=== PATIENT | male | born 1935 | race Caucasian/White ===

== ENCOUNTER 2020-05-21 13:19 | Inpatient (IN) ==
[2020-05-21] MEDS ORDERED: NS 500 ML IV 1,000 ML IV ONE (13:46)
[2020-05-21] MEDS ORDERED: ZOFRAN INJ 4 MG VIAL IVP ONE (13:46)
--- NOTE | 2020-05-21 13:46 | DR.DIZZY ---
HPI Time seen Time Seen by Provider: 05/21/20 13:38 PCP Primary Care Physician: el bertrand Complaint Chief Complaint Doctor Comments: cOMPLAINT OF WEAKNESS, DECREASED APPETITE AND DIARRHEA SINCE COVID DIAGNOSIS. Chief Complaint:: covid positive on the 2nd of this month. progressive weakness. decreased po intake fluids and food. diarrhea on and off since diagnosis COVID-19 Coronavirus risk:travel/contact w/high risk person: No Has patient experienced Coronavirus symptoms: Yes Coronavirus symptoms experienced: Fever, Coughing and Shortness of Breath Nurses Notes Reviewed Nurses Notes Review: Yes Source History Provided: Patient and Family Member Mode of Arrival Mode of Arrival: Ambulatory Timing Onset of Chief Complaint: 05/09/20 Came on: Gradually Symptom Onset: Unknown Duration Duration: Constant How lon Duration: Days Location of Weakness Weakness Location: Generalized Context Onset: With light exertion History of: None Stroke Symptoms: None Severity Severity: Abnormal activity level Modifying factors Worsens: Other (EXERTION) Associated signs and symptoms Associated Signs and Symptoms: Weak PMH PMH Past Medical History: Yes Past Medical History: Hypertension Past Medical History Comment: covid, brain aneurysms x2 Past Surgical History: Yes Surgical History: Other Past Surgical History Comment: brain surgery for aneurysm, hernia Family History History of Family Medical Conditions: Yes Family Medical History: Cancer and Hypertension Social History Alcohol Use: None Do you use any recreational Drugs:: No Lives With: Alone Lives Where: Home Travel Risk Coronavirus risk:travel/contact w/high risk person: No Has patient experienced Coronavirus symptoms: Yes Coronavirus symptoms experienced: Fever, Coughing and Shortness of Breath Infectious screening In the last 2 months have you had wt loss of >10#?: NO Have you had fever, night sweats or hemotysis?: No Have you traveled outside the country in the last 6 months?: No Isolation: Droplet ROS Review of Systems Constitutional: Weakness Eyes: No Symptoms Reported ENTM: No Symptoms Reported Respiratoy: No Symptoms Reported Gastrointestinal/Abdominal: Diarrhea Genitourinary: No Symptoms Reported Neurological: Dizziness Musculoskeletal: No Symptoms Reported Integumentary: No Symptoms Reported Hematologic/Lymphatic: No Symptoms Reported Endocrine: No Symptoms Reported Psychiatric: No Symptoms Reported All Other Systems: Reviewed and Negative PE Vital Signs Vitals: Temperature 97.9 F Pulse Rate 55 Respiratory Rate 18 Blood Pressure 107/56 O2 Sat by Pulse Oximetry 88 General Limitations: No Limitations General Appearance: Alert and In No Apparent Distress Head Head Exam: Normal Inspection, Atraumatic and Normocephalic Eyes Eye exam: Normal Appearance and EOMI Pupils: Regular, Round: Bilateral ENT ENT Exam: Normal Exam and Mucous Membranes Dry Neck Neck Exam: Normal Inspection, Full ROM and Trachea Midline Chest Chest Inspection: Normal Inspection Respiratory Respiratory Exam: Left: Rales, Right: Clear to Auscultation and Lower: Rales Cardiovascular Cardiovascular Exam: Regular Rate Abdominal Exam Abdominal Exam: Normal Inspection, Normal Bowel Sounds and Soft; negative Distention, Tenderness and Guarding Rectal Rectal Exam: Deferred Extremeties Extremities Exam: Normal Inspection and Full ROM Back Back Exam: Normal Inspection and Full ROM Neurologic Neurological Exam: Alert, Oriented X3, CN II-XII Intact and Normal Gait Patient Oriented To: Person, Place and Time Speech: Fluid Speech Psychiatric Psychiatric Exam: Normal Affect Skin Skin Exam: Normal Color COURSE Consultation Called: 14:48 Call Returned: 14:48 Consultation Comments: 1445:case discussed with DR. Recinos admit for covid 19 protocol ROR Labs Reviewed Result Diagrams: 05/21/20 14:03 05/21/20 14:03 Laboratory: WBC 7.5 X10^3/uL (3.6-10.0) 05/21/20 14:03 RBC 4.74 X10^6/uL (4.7-6.0) 05/21/20 14:03 Hgb 13.6 g/dL (13.5-18.0) 05/21/20 14:03 Hct 41.3 % (42.0-54.0) L 05/21/20 14:03 MCV 87.2 fL (80.0-100.0) 05/21/20 14:03 MCH 28.7 pg (27.0-34.0) 05/21/20 14:03 MCHC 33.0 g/dL (33.0-35.0) 05/21/20 14:03 RDW 14.2 % (11.6-16.5) 05/21/20 14:03 Plt Count 288 X10^3/uL (150.0-450.0) 05/21/20 14:03 Plt Count Comment Adequate (ADEQUATE) 05/21/20 14:03 MPV 8.5 fL (7.4-11.0) 05/21/20 14:03 Neut % (Auto) 92.4 % (42.0-75.0) H 05/21/20 14:03 Lymph % (Auto) 3.6 % (21.0-51.0) L 05/21/20 14:03 Redwood % (Auto) 3.5 % (0.0-13.0) 05/21/20 14:03 Eos % (Auto) 0.1 % (0.9-2.9) L 05/21/20 14:03 Baso % (Auto) 0.4 % (0.2-1.0) 05/21/20 14:03 Neut # (Auto) 7.0 x10^3/uL (2.2-4.8) H 05/21/20 14:03 Lymph # (Auto) 0.3 X10^3/uL (1.3-2.9) L 05/21/20 14:03 Redwood # (Auto) 0.3 x10^3/uL (0.3-0.8) 05/21/20 14:03 Eos # (Auto) 0.0 x10^3/uL (0.0-0.2) 05/21/20 14:03 Baso # (Auto) 0.0 X10^3/uL (0.0-0.1) 05/21/20 14:03 Absolute Nucleated RBC 0.1 /100WBC 05/21/20 14:03 Total Counted 100 05/21/20 14:03 Neutrophils % (Manual) 91 % (39-76) H 05/21/20 14:03 Band Neutrophils % 3 % (0-10) 05/21/20 14:03 Lymphocytes % (Manual) 4 % (13-43) L 05/21/20 14:03 Monocytes % (Manual) 2 % (4-9) L 05/21/20 14:03 Plt Morphology Comment Normal (NORMAL) 05/21/20 14:03 RBC Morphology Normal (NORMAL) 05/21/20 14:03 Sample Site Lr 05/21/20 14:05 ABG pH 7.480 (7.35-7.45) H 05/21/20 14:05 ABG pCO2 28.0 mmHg (35.0-45.0) L 05/21/20 14:05 ABG pO2 70.0 mmHg (80.0-100.0) L 05/21/20 14:05 ABG HCO3 20.9 mmol/L (22-26) L 05/21/20 14:05 ABG O2 Saturation 95.0 % (90-100) 05/21/20 14:05 ABG Base Excess -1.5 mmol/L (-2.0-2.0) 05/21/20 14:05 Uriah Test Pos 05/21/20 14:05 A-a Gradient 45.0 mmHg 05/21/20 14:05 FiO2 28.0 05/21/20 14:05 Blood Gas Comments Yennifer well cb 05/21/20 14:05 Sodium 135 mmol/L (136-145) L 05/21/20 14:03 Corrected Sodium TNP 05/21/20 14:03 Potassium 3.8 mmol/L (3.5-5.1) 05/21/20 14:03 Chloride 100 mmol/L (98-107) 05/21/20 14:03 Carbon Dioxide 22.7 mmol/L (21-32) 05/21/20 14:03 BUN 33 mg/dL (7-18) H 05/21/20 14:03 Creatinine 1.33 mg/dL (0.70-1.30) H 05/21/20 14:03 Est GFR (MDRD) Af Amer > 60 (>60) 05/21/20 14:03 Est GFR (MDRD) Non-Af 54 (>60) L 05/21/20 14:03 Glucose 107 mg/dL (65-99) H 05/21/20 14:03 Calcium 8.7 mg/dL (8.5-10.1) 05/21/20 14:03 Corrected Calcium 9.8 mg/dL (8.5-10.1) 05/21/20 14:03 Total Bilirubin 0.70 mg/dL (0.2-1.0) 05/21/20 14:03 AST 40 Units/L (15-37) H 05/21/20 14:03 ALT 36 Units/L (12-78) 05/21/20 14:03 Alkaline Phosphatase 72 Units/L (46-116) 05/21/20 14:03 Creatine Kinase 62 Units/L (39-308) 05/21/20 14:03 CK-MB (CK-2) < 1.0 ng/mL (0-4.0) 05/21/20 14:03 CK/CKMB % Calc 1.6 % (<4) 05/21/20 14:03 Troponin I < 0.02 ng/mL (0-1.5) 05/21/20 14:03 Total Protein 7.1 g/dL (6.4-8.2) 05/21/20 14:03 Albumin 2.6 g/dL (3.4-5.0) L 05/21/20 14:03 Globulin 4.5 g/dL (2.5-4.5) 05/21/20 14:03 Albumin/Globulin Ratio 0.6 Ratio (1.1-2.1) L 05/21/20 14:03 XRAY XRAY Interpreted by: Self X-ray Results: chest: bilateral patchy basilar infiltrates Opioid Opioid Risk Tool Age (Everardo box if 16-45): No History of Preadolescent Sexual Abuse: No Total: 0 Total Score Risk Category: Low Risk Copyright: Juan Daniel DINH predicting aberrant behaviors
[2020-05-21] MEDS ORDERED: ZOFRAN INJ 4 MG VIAL ONE (13:54)
[2020-05-21] MEDS ORDERED: NS 500 ML IV 500 ML IV ONE (13:55)
[2020-05-21 14:09] LABS: ABG ALLEN TEST POS; ABG BASE EXCESS -1.5 mmol/L (-2.0-2.0); ABG HCO3 20.9 mmol/L (22-26)
[2020-05-21 14:20] LABS: BASOPHILS % (AUTO) 0.4 % (0.2-1.0); EOSINOPHILS % (AUTO) 0.1 % (0.9-2.9); HEMATOCRIT 41.3 % (42.0-54.0); HEMOGLOBIN 13.6 g/dL (13.5-18.0); LYMPHOCYTES # (AUTO) 0.3 X10^3/uL (1.3-2.9); LYMPHOCYTES % (AUTO) 3.6 % (21.0-51.0); MEAN CORPUSCULAR HEMOGLOBIN 28.7 pg (27.0-34.0); MEAN CORPUSCULAR VOLUME 87.2 fL (80.0-100.0); MEAN PLATELET VOLUME 8.5 fL (7.4-11.0); MONOCYTES # (AUTO) 0.3 x10^3/uL (0.3-0.8); MONOCYTES % (AUTO) 3.5 % (0.0-13.0); NEUTROPHILS % (AUTO) 92.4 % (42.0-75.0); PLATELET COUNT 288 X10^3/uL (150.0-450.0); RED BLOOD COUNT 4.74 X10^6/uL (4.7-6.0); RED CELL DISTRIBUTION WIDTH 14.2 % (11.6-16.5); WHITE BLOOD COUNT 7.5 X10^3/uL (3.6-10.0)
[2020-05-21 14:39] LABS: BLOOD UREA NITROGEN 33 mg/dL (7-18); CALCIUM 8.7 mg/dL (8.5-10.1); CARBON DIOXIDE 22.7 mmol/L (21-32); CHLORIDE 100 mmol/L (98-107); CREATININE 1.33 mg/dL (0.70-1.30); SODIUM 135 mmol/L (136-145); TROPONIN I < 0.02 ng/mL (0-1.5); eGFR NON BLACK RACES 54 (>60)
--- NOTE | 2020-05-21 14:42 | RAD ---
HISTORYCOVIDSTUDYCHEST, 1 VIEWCOMPARISONNone availableFINDINGSThe trachea is midline. The cardiac silhouette is unremarkable . The lungs demonstrate scattered peripheral airspace opacities throughout both lungs left greater than right compatible with multifocal pneumonia and history of COVID-19 the bony thorax is unremarkable.IMPRESSIONMultifocal pneumonia..Electronically signed by: ABHISHEK LINARES (May 21, 2020 14:40:20)
[2020-05-21 14:43] LABS: ALANINE AMINOTRANSFERASE 36 Units/L (12-78); ALBUMIN 2.6 g/dL (3.4-5.0); ALKALINE PHOSPHATASE 72 Units/L (46-116); ASPARTATE AMINO TRANSFERASE 40 Units/L (15-37); CKMB % 1.6 % (<4); COR CA(FOR HYPOALB) 9.8 mg/dL (8.5-10.1); CREATINE KINASE 62 Units/L (39-308); CREATINE KINASE MB < 1.0 ng/mL (0-4.0); TOTAL PROTEIN 7.1 g/dL (6.4-8.2)
[2020-05-21 14:50] LABS: BAND NEUTROPHILS % 3 % (0-10)
[2020-05-21 14:51] LABS: PLATELET MORPHOLOGY COMMENT NORMAL (NORMAL)
[2020-05-21] MEDS ORDERED: PLAQUENIL PO SCH (15:00)
[2020-05-21] MEDS ORDERED: REMDESIVIR 200 MG in NS 250 ML IV 250 ML IV SCH (15:00)
[2020-05-21] MEDS: DUONEB 0.5 MG/3 MG (3 mL) NEB SCH ×2 (17:15→21:40)
[2020-05-21 17:23] VITALS: BMI 21.7
[2020-05-21] MEDS: NS 1000 ML 1,000 ML IV SCH (18:23)
[2020-05-21] MEDS: ZINC SULFATE PO SCH ×2 (18:23→22:28)
[2020-05-21] MEDS: VITAMIN D (1.25MG) PO SCH (18:23)
[2020-05-21] MEDS: ASCORBIC ACID INJ MULTI-DOSE VIAL 1,500 MG in NS 100 ML IV 100 ML IV SCH ×2 (18:23→21:37)
[2020-05-21] MEDS: DECADRON TAB PO SCH (18:23)
[2020-05-21] MEDS: VITAMIN A PO SCH (18:24)
[2020-05-21] MEDS: TRICOR TAB 160 MG PO SCH (18:24)
[2020-05-21] MEDS: LOVENOX INJ 30 MG SYR SC SCH ×2 (19:19→22:28)
[2020-05-21] MEDS: PULMICORT NEB TX 0.5 MG NEB SCH (21:40)
[2020-05-22] MEDS: ASCORBIC ACID INJ MULTI-DOSE VIAL 1,500 MG in NS 100 ML IV 100 ML IV SCH ×4 (04:05→22:19)
[2020-05-22 05:02] LABS: ABG ALLEN TEST POS; ABG BASE EXCESS -0.2 mmol/L (-2.0-2.0)
[2020-05-22 05:36] LABS: BASOPHILS % (AUTO) 0.2 % (0.2-1.0); HEMATOCRIT 35.6 % (42.0-54.0); LYMPHOCYTES # (AUTO) 0.2 X10^3/uL (1.3-2.9); LYMPHOCYTES % (AUTO) 5.7 % (21.0-51.0); MEAN CORPUSCULAR HEMOGLOBIN 29.2 pg (27.0-34.0); MEAN CORPUSCULAR HGB CONC 33.7 g/dL (33.0-35.0); MEAN CORPUSCULAR VOLUME 86.7 fL (80.0-100.0); MEAN PLATELET VOLUME 8.1 fL (7.4-11.0); MONOCYTES # (AUTO) 0.1 x10^3/uL (0.3-0.8); MONOCYTES % (AUTO) 2.1 % (0.0-13.0); PLATELET COUNT 253 X10^3/uL (150.0-450.0); RED BLOOD COUNT 4.11 X10^6/uL (4.7-6.0); RED CELL DISTRIBUTION WIDTH 14.3 % (11.6-16.5); WHITE BLOOD COUNT 3.2 X10^3/uL (3.6-10.0)
[2020-05-22 06:02] LABS: ALANINE AMINOTRANSFERASE 29 Units/L (12-78); ALBUMIN 2.2 g/dL (3.4-5.0); ALKALINE PHOSPHATASE 58 Units/L (46-116); ASPARTATE AMINO TRANSFERASE 29 Units/L (15-37); BLOOD UREA NITROGEN 34 mg/dL (7-18); CALCIUM 8.5 mg/dL (8.5-10.1); CHLORIDE 105 mmol/L (98-107); COR CA(FOR HYPOALB) 9.9 mg/dL (8.5-10.1); COR NA(FOR HYPERGLY) 142 mmol/L (136-145); CREATININE 1.25 mg/dL (0.70-1.30); SODIUM 141 mmol/L (136-145); TOTAL PROTEIN 6.1 g/dL (6.4-8.2); eGFR NON BLACK RACES 58 (>60)
[2020-05-22 06:55] LABS: PLATELET MORPHOLOGY COMMENT NORMAL (NORMAL)
[2020-05-22] MEDS: DUONEB 0.5 MG/3 MG (3 mL) NEB SCH ×4 (09:15→20:00)
[2020-05-22] MEDS: PULMICORT NEB TX 0.5 MG NEB SCH ×2 (09:15→20:00)
[2020-05-22] MEDS: DECADRON TAB PO SCH (10:25)
[2020-05-22] MEDS: REMDESIVIR 100 MG in NS 250 ML IV 250 ML IV SCH (10:26)
[2020-05-22] MEDS: LOVENOX INJ 30 MG SYR SC SCH ×2 (10:26→22:19)
[2020-05-22] MEDS: VITAMIN A PO SCH (10:26)
[2020-05-22] MEDS: VITAMIN D (1.25MG) PO SCH (10:26)
[2020-05-22] MEDS: TRICOR TAB 160 MG PO SCH (10:26)
[2020-05-22] MEDS: ZINC SULFATE PO SCH ×2 (10:27→22:19)
[2020-05-22] MEDS: NS 1000 ML 1,000 ML IV SCH (15:53)
[2020-05-23] MEDS: ASCORBIC ACID INJ MULTI-DOSE VIAL 1,500 MG in NS 100 ML IV 100 ML IV SCH ×4 (04:45→22:45)
[2020-05-23 06:16] LABS: BASOPHILS % (AUTO) 0 % (0.2-1.0); HEMATOCRIT 33.2 % (42.0-54.0); HEMOGLOBIN 11.1 g/dL (13.5-18.0); LYMPHOCYTES # (AUTO) 0.3 X10^3/uL (1.3-2.9); LYMPHOCYTES % (AUTO) 4.7 % (21.0-51.0); MEAN CORPUSCULAR HEMOGLOBIN 28.8 pg (27.0-34.0); MEAN CORPUSCULAR HGB CONC 33.4 g/dL (33.0-35.0); MEAN CORPUSCULAR VOLUME 86.2 fL (80.0-100.0); MEAN PLATELET VOLUME 8.4 fL (7.4-11.0); MONOCYTES # (AUTO) 0.3 x10^3/uL (0.3-0.8); MONOCYTES % (AUTO) 4.5 % (0.0-13.0); NEUTROPHILS # (AUTO) 6.4 x10^3/uL (2.2-4.8); NEUTROPHILS % (AUTO) 90.8 % (42.0-75.0); PLATELET COUNT 279 X10^3/uL (150.0-450.0); RED BLOOD COUNT 3.86 X10^6/uL (4.7-6.0); RED CELL DISTRIBUTION WIDTH 14.1 % (11.6-16.5)
[2020-05-23 06:45] LABS: ALANINE AMINOTRANSFERASE 29 Units/L (12-78); ALBUMIN 2.1 g/dL (3.4-5.0); ALKALINE PHOSPHATASE 50 Units/L (46-116); ASPARTATE AMINO TRANSFERASE 19 Units/L (15-37); BLOOD UREA NITROGEN 34 mg/dL (7-18); CALCIUM 8.6 mg/dL (8.5-10.1); CARBON DIOXIDE 25.6 mmol/L (21-32); CHLORIDE 109 mmol/L (98-107); COR CA(FOR HYPOALB) 10.1 mg/dL (8.5-10.1); COR NA(FOR HYPERGLY) 144 mmol/L (136-145); CREATININE 1.07 mg/dL (0.70-1.30); SODIUM 143 mmol/L (136-145); TOTAL PROTEIN 5.7 g/dL (6.4-8.2); eGFR NON BLACK RACES > 60 (>60)
[2020-05-23 06:53] LABS: PLATELET MORPHOLOGY COMMENT NORMAL (NORMAL)
[2020-05-23] MEDS: DUONEB 0.5 MG/3 MG (3 mL) NEB SCH ×4 (09:30→20:00)
[2020-05-23] MEDS: PULMICORT NEB TX 0.5 MG NEB SCH ×2 (09:30→20:00)
[2020-05-23] MEDS: TRICOR TAB 160 MG PO SCH (09:52)
[2020-05-23] MEDS: DECADRON TAB PO SCH (09:52)
[2020-05-23] MEDS: LOVENOX INJ 30 MG SYR SC SCH ×2 (09:53→23:45)
[2020-05-23] MEDS: ZINC SULFATE PO SCH ×2 (09:53→22:45)
[2020-05-23] MEDS: VITAMIN D3 125 mcg (5,000 UNITS) PO SCH (09:53)
[2020-05-23] MEDS: VITAMIN A PO SCH (09:53)
[2020-05-23] MEDS: REMDESIVIR 100 MG in NS 250 ML IV 250 ML IV SCH ×2 (09:54→13:34)
[2020-05-23] MEDS: NS 1000 ML 1,000 ML IV SCH (14:55)
[2020-05-23] MEDS: PEPCID TAB 20 MG PO SCH ×2 (14:55→22:45)
[2020-05-24] MEDS: ASCORBIC ACID INJ MULTI-DOSE VIAL 1,500 MG in NS 100 ML IV 100 ML IV SCH ×4 (04:45→22:00)
[2020-05-24 05:26] LABS: BASOPHILS % (AUTO) 0.1 % (0.2-1.0); HEMATOCRIT 40.1 % (42.0-54.0); HEMOGLOBIN 12.9 g/dL (13.5-18.0); LYMPHOCYTES # (AUTO) 0.5 X10^3/uL (1.3-2.9); LYMPHOCYTES % (AUTO) 6.2 % (21.0-51.0); MEAN CORPUSCULAR HEMOGLOBIN 28.1 pg (27.0-34.0); MEAN CORPUSCULAR HGB CONC 32.2 g/dL (33.0-35.0); MEAN CORPUSCULAR VOLUME 87.3 fL (80.0-100.0); MEAN PLATELET VOLUME 8.7 fL (7.4-11.0); MONOCYTES # (AUTO) 0.3 x10^3/uL (0.3-0.8); MONOCYTES % (AUTO) 3.8 % (0.0-13.0); NEUTROPHILS # (AUTO) 7.9 x10^3/uL (2.2-4.8); NEUTROPHILS % (AUTO) 89.9 % (42.0-75.0); PLATELET COUNT 393 X10^3/uL (150.0-450.0); RED BLOOD COUNT 4.59 X10^6/uL (4.7-6.0); RED CELL DISTRIBUTION WIDTH 14.4 % (11.6-16.5); WHITE BLOOD COUNT 8.7 X10^3/uL (3.6-10.0)
[2020-05-24 05:39] LABS: ALANINE AMINOTRANSFERASE 37 Units/L (12-78); ALBUMIN 2.5 g/dL (3.4-5.0); ALKALINE PHOSPHATASE 83 Units/L (46-116); ASPARTATE AMINO TRANSFERASE 41 Units/L (15-37); BLOOD UREA NITROGEN 34 mg/dL (7-18); CALCIUM 9.1 mg/dL (8.5-10.1); CARBON DIOXIDE 25.4 mmol/L (21-32); CHLORIDE 106 mmol/L (98-107); COR CA(FOR HYPOALB) 10.3 mg/dL (8.5-10.1); SODIUM 143 mmol/L (136-145); TOTAL PROTEIN 6.5 g/dL (6.4-8.2); eGFR NON BLACK RACES 56 (>60)
[2020-05-24] MEDS: VITAMIN D3 125 mcg (5,000 UNITS) PO SCH (09:02)
[2020-05-24] MEDS: ZINC SULFATE PO SCH ×2 (09:02→22:00)
[2020-05-24] MEDS: VITAMIN A PO SCH (09:02)
[2020-05-24] MEDS: DECADRON TAB PO SCH (09:03)
[2020-05-24] MEDS: TRICOR TAB 160 MG PO SCH (09:03)
[2020-05-24] MEDS: LOVENOX INJ 30 MG SYR SC SCH (09:03)
[2020-05-24] MEDS: PEPCID TAB 20 MG PO SCH ×2 (09:04→22:00)
[2020-05-24] MEDS: PULMICORT NEB TX 0.5 MG NEB SCH ×2 (09:50→21:39)
[2020-05-24] MEDS: DUONEB 0.5 MG/3 MG (3 mL) NEB SCH ×4 (09:50→21:39)
[2020-05-24] MEDS: REMDESIVIR 100 MG in NS 250 ML IV 250 ML IV SCH (10:08)
[2020-05-24] MEDS: TYLENOL 500 MG TAB EXTRA STRENGTH PO PRN (14:05)
[2020-05-24] MEDS: NS 1000 ML 1,000 ML IV SCH (14:24)
[2020-05-24] MEDS: ATIVAN INJ 2 MG VIAL IVP PRN (14:54)
[2020-05-24] MEDS: XARELTO PO SCH (15:58)
[2020-05-24 22:25] LABS: BILIRUBIN,URINE NEGATIVE (NEGATIVE); BLOOD/HEMOGLOBIN,URINE NEGATIVE (NEGATIVE); GLUCOSE, URINE NEGATIVE (NEGATIVE); KETONES,URINE NEGATIVE (NEGATIVE); LEUKOCYTE ESTERASE ,URINE NEGATIVE (NEGATIVE); NITRITES,URINE NEGATIVE (NEGATIVE); PROTEIN,URINE 2+ (NEGATIVE); UROBILINOGEN,URINE NORMAL (NORMAL)
[2020-05-24 22:32] LABS: APPEARANCE,URINE CLEAR (CLEAR); BACTERIA,URINE NEGATIVE /HPF (NEGATIVE); COLOR,URINE YELLOW (YELLOW); RBC,URINE NONE SEEN /HPF (0-3); SQUAMOUS EPITHELIAL CELL,UR NEGATIVE /HPF (NEGATIVE)
[2020-05-25] MEDS: ASCORBIC ACID INJ MULTI-DOSE VIAL 1,500 MG in NS 100 ML IV 100 ML IV SCH ×4 (03:53→20:48)
[2020-05-25] MEDS: ATIVAN INJ 2 MG VIAL IVP PRN (04:24)
[2020-05-25 05:40] LABS: ALANINE AMINOTRANSFERASE 45 Units/L (12-78); ALBUMIN 2.2 g/dL (3.4-5.0); ALKALINE PHOSPHATASE 60 Units/L (46-116); ASPARTATE AMINO TRANSFERASE 48 Units/L (15-37); BLOOD UREA NITROGEN 30 mg/dL (7-18); CALCIUM 8.3 mg/dL (8.5-10.1); CHLORIDE 106 mmol/L (98-107); COR CA(FOR HYPOALB) 9.7 mg/dL (8.5-10.1); CREATININE 1.19 mg/dL (0.70-1.30); SODIUM 141 mmol/L (136-145); TOTAL PROTEIN 5.5 g/dL (6.4-8.2); eGFR NON BLACK RACES > 60 (>60)
[2020-05-25] MEDS: NS 1000 ML 1,000 ML IV SCH ×2 (05:52→14:14)
[2020-05-25 06:07] LABS: BASOPHILS % (AUTO) 0.1 % (0.2-1.0); HEMATOCRIT 34.1 % (42.0-54.0); HEMOGLOBIN 11.3 g/dL (13.5-18.0); LYMPHOCYTES # (AUTO) 0.4 X10^3/uL (1.3-2.9); LYMPHOCYTES % (AUTO) 5.9 % (21.0-51.0); MEAN CORPUSCULAR HEMOGLOBIN 28.6 pg (27.0-34.0); MEAN CORPUSCULAR HGB CONC 33.1 g/dL (33.0-35.0); MEAN CORPUSCULAR VOLUME 86.4 fL (80.0-100.0); MEAN PLATELET VOLUME 8.3 fL (7.4-11.0); MONOCYTES # (AUTO) 0.3 x10^3/uL (0.3-0.8); MONOCYTES % (AUTO) 4.1 % (0.0-13.0); NEUTROPHILS # (AUTO) 6.2 x10^3/uL (2.2-4.8); NEUTROPHILS % (AUTO) 89.9 % (42.0-75.0); PLATELET COUNT 281 X10^3/uL (150.0-450.0); RED BLOOD COUNT 3.95 X10^6/uL (4.7-6.0); RED CELL DISTRIBUTION WIDTH 14.5 % (11.6-16.5); WHITE BLOOD COUNT 6.9 X10^3/uL (3.6-10.0)
[2020-05-25 06:26] LABS: CARBON DIOXIDE 23.5 mmol/L (21-32)
--- NOTE | 2020-05-25 06:37 | RAD ---
HISTORYCOVID+STUDYCHEST, 1 [id number]/14/2020.TECHNIQUEAP view of the chestFINDINGSCardiac and mediastinal contours appear normal. Stable multifocal bilateral airspace disease. No pleural effusion or pneumothorax.IMPRESSIONNo significant change.Electronically signed by: Candelario Schmidt (May 25, 2020 06:35:47)
[2020-05-25] MEDS ORDERED: ATIVAN INJ 2 MG VIAL IVP ONE (09:00)
[2020-05-25] MEDS: PULMICORT NEB TX 0.5 MG NEB SCH ×2 (09:30→21:18)
[2020-05-25] MEDS: DUONEB 0.5 MG/3 MG (3 mL) NEB SCH ×4 (09:30→21:18)
[2020-05-25] MEDS: PEPCID TAB 20 MG PO SCH ×2 (10:15→20:49)
[2020-05-25] MEDS: VITAMIN D3 125 mcg (5,000 UNITS) PO SCH (10:16)
[2020-05-25] MEDS: DECADRON TAB PO SCH (10:16)
[2020-05-25] MEDS: TRICOR TAB 160 MG PO SCH (10:16)
[2020-05-25] MEDS: XARELTO PO SCH (10:17)
[2020-05-25] MEDS: ZINC SULFATE PO SCH ×2 (10:17→20:49)
[2020-05-25] MEDS: VITAMIN A PO SCH (10:17)
[2020-05-25] MEDS: REMDESIVIR 100 MG in NS 250 ML IV 250 ML IV SCH (10:19)
[2020-05-25] MEDS ORDERED: ATIVAN INJ 2 MG VIAL ONE (12:05)
[2020-05-25] MEDS ORDERED: ATIVAN INJ 2 MG VIAL IVP SCH (12:08)
[2020-05-25] MEDS ORDERED: OFIRMEV IV 1000 MG VIAL 1,000 MG/100 ML VIAL IV ONE (12:29)
[2020-05-25] MEDS: OFIRMEV IV 1000 MG VIAL 1,000 MG/100 ML VIAL IV PRN (12:35)
[2020-05-25 13:01] LABS: BILIRUBIN,URINE NEGATIVE (NEGATIVE); BLOOD/HEMOGLOBIN,URINE NEGATIVE (NEGATIVE); GLUCOSE, URINE NEGATIVE (NEGATIVE); KETONES,URINE NEGATIVE (NEGATIVE); LEUKOCYTE ESTERASE ,URINE NEGATIVE (NEGATIVE); NITRITES,URINE NEGATIVE (NEGATIVE); PROTEIN,URINE 2+ (NEGATIVE); UROBILINOGEN,URINE NORMAL (NORMAL)
[2020-05-25 13:13] LABS: APPEARANCE,URINE CLEAR (CLEAR); BACTERIA,URINE NEGATIVE /HPF (NEGATIVE); COLOR,URINE YELLOW (YELLOW); RBC,URINE 0-2 /HPF (0-3); SQUAMOUS EPITHELIAL CELL,UR RARE /HPF (NEGATIVE)
[2020-05-25 13:14] LABS: MUCUS,URINE FEW /HPF (NEGATIVE)
[2020-05-26] MEDS: ASCORBIC ACID INJ MULTI-DOSE VIAL 1,500 MG in NS 100 ML IV 100 ML IV SCH ×4 (03:35→21:07)
[2020-05-26 05:26] LABS: ABG BASE EXCESS 3.7 mmol/L (-2.0-2.0); ABG HCO3 27.7 mmol/L (22-26)
[2020-05-26 05:38] LABS: ALANINE AMINOTRANSFERASE 38 Units/L (12-78); ALBUMIN 2.1 g/dL (3.4-5.0); ALKALINE PHOSPHATASE 62 Units/L (46-116); ASPARTATE AMINO TRANSFERASE 32 Units/L (15-37); BLOOD UREA NITROGEN 31 mg/dL (7-18); CALCIUM 8.2 mg/dL (8.5-10.1); CARBON DIOXIDE 27.6 mmol/L (21-32); CHLORIDE 106 mmol/L (98-107); COR CA(FOR HYPOALB) 9.7 mg/dL (8.5-10.1); CREATININE 1.02 mg/dL (0.70-1.30); SODIUM 141 mmol/L (136-145); TOTAL PROTEIN 5.5 g/dL (6.4-8.2); eGFR NON BLACK RACES > 60 (>60)
[2020-05-26 06:02] LABS: BASOPHILS % (AUTO) 0.1 % (0.2-1.0); HEMATOCRIT 36.1 % (42.0-54.0); LYMPHOCYTES # (AUTO) 0.4 X10^3/uL (1.3-2.9); LYMPHOCYTES % (AUTO) 5.4 % (21.0-51.0); MEAN CORPUSCULAR HEMOGLOBIN 28.7 pg (27.0-34.0); MEAN CORPUSCULAR HGB CONC 33.1 g/dL (33.0-35.0); MEAN CORPUSCULAR VOLUME 86.6 fL (80.0-100.0); MEAN PLATELET VOLUME 8.5 fL (7.4-11.0); MONOCYTES # (AUTO) 0.3 x10^3/uL (0.3-0.8); MONOCYTES % (AUTO) 3.9 % (0.0-13.0); NEUTROPHILS # (AUTO) 7.2 x10^3/uL (2.2-4.8); NEUTROPHILS % (AUTO) 90.6 % (42.0-75.0); PLATELET COUNT 255 X10^3/uL (150.0-450.0); RED BLOOD COUNT 4.17 X10^6/uL (4.7-6.0); RED CELL DISTRIBUTION WIDTH 14.6 % (11.6-16.5)
--- NOTE | 2020-05-26 06:20 | RAD ---
HISTORYcovidSTUDYPortable AP [id number]/18/2020FINDINGSHeart size remains within normal limits. There is no change in extent or distribution of bilateral pulmonary infiltrates. There is no evidence for developing pleural effusion or extrapulmonary air complication.IMPRESSIONNo change in appearance of the bilateral pneumonia.Electronically signed by: PEYMAN HERNANDEZ (May 26, 2020 06:19:24)
[2020-05-26 06:40] LABS: PLATELET MORPHOLOGY COMMENT NORMAL (NORMAL)
[2020-05-26] MEDS: PULMICORT NEB TX 0.5 MG NEB SCH ×2 (09:20→21:01)
[2020-05-26] MEDS: DUONEB 0.5 MG/3 MG (3 mL) NEB SCH ×4 (09:20→21:01)
[2020-05-26] MEDS: DECADRON TAB PO SCH ×2 (10:28→11:38)
[2020-05-26] MEDS: PEPCID TAB 20 MG PO SCH ×3 (10:28→21:07)
[2020-05-26] MEDS: TRICOR TAB 160 MG PO SCH ×2 (10:28→11:39)
[2020-05-26] MEDS: VITAMIN A PO SCH ×2 (10:28→11:38)
[2020-05-26] MEDS: XARELTO PO SCH ×2 (10:29→11:38)
[2020-05-26] MEDS: VITAMIN D3 125 mcg (5,000 UNITS) PO SCH ×2 (10:29→11:40)
[2020-05-26] MEDS: ZINC SULFATE PO SCH ×3 (10:29→21:07)
[2020-05-26] MEDS: NS 1000 ML 1,000 ML IV SCH ×2 (11:27→14:54)
[2020-05-27] MEDS: ASCORBIC ACID INJ MULTI-DOSE VIAL 1,500 MG in NS 100 ML IV 100 ML IV SCH ×4 (02:44→20:43)
[2020-05-27] MEDS: ATIVAN INJ 2 MG VIAL IVP PRN (03:13)
[2020-05-27 05:31] LABS: BASOPHILS % (AUTO) 0.2 % (0.2-1.0); HEMATOCRIT 36.2 % (42.0-54.0); HEMOGLOBIN 11.8 g/dL (13.5-18.0); LYMPHOCYTES # (AUTO) 0.4 X10^3/uL (1.3-2.9); LYMPHOCYTES % (AUTO) 4.6 % (21.0-51.0); MEAN CORPUSCULAR HEMOGLOBIN 28.4 pg (27.0-34.0); MEAN CORPUSCULAR HGB CONC 32.7 g/dL (33.0-35.0); MEAN CORPUSCULAR VOLUME 86.7 fL (80.0-100.0); MEAN PLATELET VOLUME 8.5 fL (7.4-11.0); MONOCYTES # (AUTO) 0.4 x10^3/uL (0.3-0.8); MONOCYTES % (AUTO) 4.6 % (0.0-13.0); NEUTROPHILS # (AUTO) 7.7 x10^3/uL (2.2-4.8); NEUTROPHILS % (AUTO) 90.6 % (42.0-75.0); PLATELET COUNT 270 X10^3/uL (150.0-450.0); RED BLOOD COUNT 4.17 X10^6/uL (4.7-6.0); RED CELL DISTRIBUTION WIDTH 14.3 % (11.6-16.5); WHITE BLOOD COUNT 8.5 X10^3/uL (3.6-10.0)
--- NOTE | 2020-05-27 05:47 | RAD ---
HISTORYCOVID-19, PNEUMONIASTUDYCHEST, 1 [id number]/19/2020FINDINGSThe trachea is midline. The cardiac silhouette is mildly enlarged, stable compared to prior exam.. Patchy bilateral pulmonary opacities/infiltrates not appreciably changed compared to prior.. The bony thorax is unremarkable.IMPRESSIONNo significant interval change.Electronically signed by: Amy Sutton (May 27, 2020 05:45:25)
[2020-05-27 05:56] LABS: ALANINE AMINOTRANSFERASE 52 Units/L (12-78); ALKALINE PHOSPHATASE 63 Units/L (46-116); ASPARTATE AMINO TRANSFERASE 54 Units/L (15-37); BLOOD UREA NITROGEN 34 mg/dL (7-18); CALCIUM 8.1 mg/dL (8.5-10.1); CARBON DIOXIDE 25.9 mmol/L (21-32); CHLORIDE 103 mmol/L (98-107); COR CA(FOR HYPOALB) 9.7 mg/dL (8.5-10.1); CREATININE 1.05 mg/dL (0.70-1.30); SODIUM 137 mmol/L (136-145); TOTAL PROTEIN 5.4 g/dL (6.4-8.2); eGFR NON BLACK RACES > 60 (>60)
[2020-05-27 06:19] LABS: PLATELET MORPHOLOGY COMMENT NORMAL (NORMAL)
[2020-05-27] MEDS: PULMICORT NEB TX 0.5 MG NEB SCH ×2 (10:14→20:55)
[2020-05-27] MEDS: DUONEB 0.5 MG/3 MG (3 mL) NEB SCH ×4 (10:14→20:55)
[2020-05-27] MEDS: ZINC SULFATE PO SCH ×2 (10:15→20:43)
[2020-05-27] MEDS: VITAMIN D3 125 mcg (5,000 UNITS) PO SCH (10:15)
[2020-05-27] MEDS: TRICOR TAB 160 MG PO SCH (10:15)
[2020-05-27] MEDS: XARELTO PO SCH (10:15)
[2020-05-27] MEDS: VITAMIN A PO SCH (10:15)
[2020-05-27] MEDS: PEPCID TAB 20 MG PO SCH ×2 (10:15→20:43)
[2020-05-27] MEDS: NS 1000 ML 1,000 ML IV SCH (17:09)
[2020-05-28] MEDS: ATIVAN INJ 2 MG VIAL IVP PRN (00:34)
[2020-05-28] MEDS: ASCORBIC ACID INJ MULTI-DOSE VIAL 1,500 MG in NS 100 ML IV 100 ML IV SCH ×4 (03:47→21:41)
[2020-05-28 05:57] LABS: ALANINE AMINOTRANSFERASE 45 Units/L (12-78); ALKALINE PHOSPHATASE 64 Units/L (46-116); ASPARTATE AMINO TRANSFERASE 37 Units/L (15-37); BLOOD UREA NITROGEN 29 mg/dL (7-18); CALCIUM 8.2 mg/dL (8.5-10.1); CHLORIDE 102 mmol/L (98-107); COR CA(FOR HYPOALB) 9.8 mg/dL (8.5-10.1); CREATININE 1.12 mg/dL (0.70-1.30); SODIUM 138 mmol/L (136-145); TOTAL PROTEIN 5.5 g/dL (6.4-8.2); eGFR NON BLACK RACES > 60 (>60)
[2020-05-28 06:05] LABS: BASOPHILS % (AUTO) 0.2 % (0.2-1.0); EOSINOPHILS % (AUTO) 0.2 % (0.9-2.9); HEMATOCRIT 36.7 % (42.0-54.0); HEMOGLOBIN 12.4 g/dL (13.5-18.0); LYMPHOCYTES # (AUTO) 0.5 X10^3/uL (1.3-2.9); LYMPHOCYTES % (AUTO) 5.1 % (21.0-51.0); MEAN CORPUSCULAR HGB CONC 33.7 g/dL (33.0-35.0); MEAN PLATELET VOLUME 8.6 fL (7.4-11.0); MONOCYTES # (AUTO) 0.7 x10^3/uL (0.3-0.8); MONOCYTES % (AUTO) 6.9 % (0.0-13.0); NEUTROPHILS # (AUTO) 8.8 x10^3/uL (2.2-4.8); NEUTROPHILS % (AUTO) 87.6 % (42.0-75.0); PLATELET COUNT 268 X10^3/uL (150.0-450.0); RED BLOOD COUNT 4.27 X10^6/uL (4.7-6.0); RED CELL DISTRIBUTION WIDTH 14.3 % (11.6-16.5)
--- NOTE | 2020-05-28 08:16 | RAD ---
HISTORYCOVID+STUDYCHEST, 1 [id number]/20/2020FINDINGSTrachea is midline. Stable borderline heart size. There is prominence of the aortic knob. There has not been significant change in bilateral alveolar radiopacities with confluent zone in the left midlung zone and in the right lower lobe. There is also underlying chronic lung changes with some emphysema in the upper lobes. There is no evidence of effusions or pneumothoraxIMPRESSIONNo interval change. Stable bilateral alveolar radiopacities with confluent areas at left midlung zone and right lower lobe. Emphysema with chronic lung changesElectronically signed by: Rosie Thao (May 28, 2020 08:14:53)
[2020-05-28] MEDS: VITAMIN A PO SCH (08:44)
[2020-05-28] MEDS: PEPCID TAB 20 MG PO SCH ×2 (08:44→21:42)
[2020-05-28] MEDS: TRICOR TAB 160 MG PO SCH (08:44)
[2020-05-28] MEDS: XARELTO PO SCH (08:44)
[2020-05-28] MEDS: VITAMIN D3 125 mcg (5,000 UNITS) PO SCH (08:44)
[2020-05-28] MEDS: ZINC SULFATE PO SCH ×2 (08:45→21:42)
[2020-05-28] MEDS: PULMICORT NEB TX 0.5 MG NEB SCH ×2 (08:51→20:19)
[2020-05-28] MEDS: DUONEB 0.5 MG/3 MG (3 mL) NEB SCH ×4 (08:51→20:19)
[2020-05-28] MEDS: MAGIC MOUTHWASH MT PRN (10:06)
[2020-05-28] MEDS: OFIRMEV IV 1000 MG VIAL 1,000 MG/100 ML VIAL IV PRN (10:06)
[2020-05-28] MEDS: NS 1000 ML 1,000 ML IV SCH ×2 (10:06→16:20)
[2020-05-28 14:24] LABS: ABG ALLEN TEST POS; ABG BASE EXCESS 6.3 mmol/L (-2.0-2.0); ABG HCO3 29.4 mmol/L (22-26)
[2020-05-29] MEDS: ASCORBIC ACID INJ MULTI-DOSE VIAL 1,500 MG in NS 100 ML IV 100 ML IV SCH ×4 (02:59→20:43)
[2020-05-29 05:41] LABS: ABG ALLEN TEST POS; ABG HCO3 30.2 mmol/L (22-26)
[2020-05-29 06:12] LABS: BASOPHILS % (AUTO) 0.3 % (0.2-1.0); EOSINOPHILS % (AUTO) 0.6 % (0.9-2.9); HEMATOCRIT 35.9 % (42.0-54.0); HEMOGLOBIN 11.9 g/dL (13.5-18.0); LYMPHOCYTES # (AUTO) 0.5 X10^3/uL (1.3-2.9); LYMPHOCYTES % (AUTO) 6.1 % (21.0-51.0); MEAN CORPUSCULAR HEMOGLOBIN 28.6 pg (27.0-34.0); MEAN CORPUSCULAR VOLUME 86.5 fL (80.0-100.0); MEAN PLATELET VOLUME 8.8 fL (7.4-11.0); MONOCYTES # (AUTO) 0.6 x10^3/uL (0.3-0.8); MONOCYTES % (AUTO) 8.6 % (0.0-13.0); NEUTROPHILS # (AUTO) 6.4 x10^3/uL (2.2-4.8); NEUTROPHILS % (AUTO) 84.4 % (42.0-75.0); PLATELET COUNT 249 X10^3/uL (150.0-450.0); RED BLOOD COUNT 4.15 X10^6/uL (4.7-6.0); RED CELL DISTRIBUTION WIDTH 14.2 % (11.6-16.5); WHITE BLOOD COUNT 7.5 X10^3/uL (3.6-10.0)
[2020-05-29 06:24] LABS: ALANINE AMINOTRANSFERASE 38 Units/L (12-78); ALKALINE PHOSPHATASE 57 Units/L (46-116); ASPARTATE AMINO TRANSFERASE 32 Units/L (15-37); BLOOD UREA NITROGEN 25 mg/dL (7-18); CALCIUM 8.1 mg/dL (8.5-10.1); CARBON DIOXIDE 27.1 mmol/L (21-32); CHLORIDE 100 mmol/L (98-107); COR CA(FOR HYPOALB) 9.7 mg/dL (8.5-10.1); CREATININE 0.92 mg/dL (0.70-1.30); SODIUM 137 mmol/L (136-145); TOTAL PROTEIN 5.5 g/dL (6.4-8.2); eGFR NON BLACK RACES > 60 (>60)
[2020-05-29] MEDS: VITAMIN A PO SCH (08:47)
[2020-05-29] MEDS: ZINC SULFATE PO SCH ×2 (08:47→20:43)
[2020-05-29] MEDS: TYLENOL 500 MG TAB EXTRA STRENGTH PO PRN (08:47)
[2020-05-29] MEDS: TRICOR TAB 160 MG PO SCH (08:47)
[2020-05-29] MEDS: VITAMIN D3 125 mcg (5,000 UNITS) PO SCH (08:47)
[2020-05-29] MEDS: XARELTO PO SCH (08:48)
[2020-05-29] MEDS: PEPCID TAB 20 MG PO SCH ×2 (08:48→20:43)
[2020-05-29] MEDS: PULMICORT NEB TX 0.5 MG NEB SCH ×2 (09:11→21:00)
[2020-05-29] MEDS: DUONEB 0.5 MG/3 MG (3 mL) NEB SCH ×4 (09:11→21:00)
[2020-05-29] MEDS: MAGIC MOUTHWASH MT PRN (09:40)
[2020-05-29] MEDS: NS 1000 ML 1,000 ML IV SCH (14:04)
[2020-05-29] MEDS: ATIVAN INJ 2 MG VIAL IVP PRN (21:59)
[2020-05-30] MEDS: ASCORBIC ACID INJ MULTI-DOSE VIAL 1,500 MG in NS 100 ML IV 100 ML IV SCH ×4 (03:31→21:19)
[2020-05-30 05:48] LABS: BASOPHILS % (AUTO) 0.3 % (0.2-1.0); EOSINOPHILS # (AUTO) 0.1 x10^3/uL (0.0-0.2); EOSINOPHILS % (AUTO) 0.8 % (0.9-2.9); HEMATOCRIT 34.8 % (42.0-54.0); HEMOGLOBIN 11.6 g/dL (13.5-18.0); LYMPHOCYTES # (AUTO) 0.5 X10^3/uL (1.3-2.9); LYMPHOCYTES % (AUTO) 5.7 % (21.0-51.0); MEAN CORPUSCULAR HGB CONC 33.4 g/dL (33.0-35.0); MEAN CORPUSCULAR VOLUME 86.8 fL (80.0-100.0); MEAN PLATELET VOLUME 8.7 fL (7.4-11.0); MONOCYTES # (AUTO) 0.7 x10^3/uL (0.3-0.8); MONOCYTES % (AUTO) 7.2 % (0.0-13.0); PLATELET COUNT 239 X10^3/uL (150.0-450.0); RED BLOOD COUNT 4.01 X10^6/uL (4.7-6.0); RED CELL DISTRIBUTION WIDTH 14.4 % (11.6-16.5); WHITE BLOOD COUNT 9.2 X10^3/uL (3.6-10.0)
[2020-05-30 06:06] LABS: ALANINE AMINOTRANSFERASE 33 Units/L (12-78); ALBUMIN 1.9 g/dL (3.4-5.0); ALKALINE PHOSPHATASE 47 Units/L (46-116); ASPARTATE AMINO TRANSFERASE 32 Units/L (15-37); BLOOD UREA NITROGEN 21 mg/dL (7-18); CALCIUM 8.5 mg/dL (8.5-10.1); CARBON DIOXIDE 30.8 mmol/L (21-32); CHLORIDE 102 mmol/L (98-107); COR CA(FOR HYPOALB) 10.2 mg/dL (8.5-10.1); CREATININE 0.95 mg/dL (0.70-1.30); SODIUM 138 mmol/L (136-145); TOTAL PROTEIN 5.5 g/dL (6.4-8.2); eGFR NON BLACK RACES > 60 (>60)
[2020-05-30] MEDS: ZINC SULFATE PO SCH ×2 (08:32→21:19)
[2020-05-30] MEDS: PEPCID TAB 20 MG PO SCH ×2 (08:33→21:19)
[2020-05-30] MEDS: TRICOR TAB 160 MG PO SCH (08:33)
[2020-05-30] MEDS: VITAMIN D3 125 mcg (5,000 UNITS) PO SCH (08:33)
[2020-05-30] MEDS: VITAMIN A PO SCH (08:33)
[2020-05-30] MEDS: XARELTO PO SCH (08:33)
[2020-05-30] MEDS: DUONEB 0.5 MG/3 MG (3 mL) NEB SCH ×4 (08:42→21:39)
[2020-05-30] MEDS: PULMICORT NEB TX 0.5 MG NEB SCH ×2 (08:42→21:39)
[2020-05-30] MEDS ORDERED: HALDOL INJ IM PRN (10:14)
[2020-05-30] MEDS ORDERED: HALDOL INJ IVP PRN (11:00)
[2020-05-30] MEDS: MAGIC MOUTHWASH MT PRN (12:01)
[2020-05-30] MEDS: NS 1000 ML 1,000 ML IV SCH (14:10)
[2020-05-30] MEDS: ZOSYN VIAL 3.375 GRAMS 3.375 G in NS 100 ML IV + SPIKE MINIBAG* 100 ML IV SCH ×2 (14:55→21:19)
[2020-05-30] MEDS ORDERED: REMDESIVIR 200 MG in NS 250 ML IV 250 ML IV NR (15:00)
--- NOTE | 2020-05-30 15:26 | RAD ---
HISTORYPNEUMONIA, COVID +STUDYCHEST, [facility]COMPARISONDe[facility] 2019TECHNIQUEPortable AP chest radiograph 1 imageFINDINGSCardiac silhouette and pulmonary vascular sizes are normal.No effusion or pneumothorax.Diffuse bilateral airspace opacities; left greater than right.No acute osseous abnormality.IMPRESSIONNo significant interval acute cardiopulmonary changes.Electronically signed by: Morris Storey (May 30, 2020 15:25:08)
[2020-05-30 16:13] LABS: ABG BASE EXCESS 9.2 mmol/L (-2.0-2.0)
[2020-05-30 16:14] LABS: ABG HCO3 32.6 mmol/L (22-26)
[2020-05-30] MEDS: MAGIC MOUTHWASH MT SCH ×2 (17:02→21:19)
[2020-05-30] MEDS: TYLENOL 500 MG TAB EXTRA STRENGTH PO PRN (18:00)
[2020-05-31] MEDS: ASCORBIC ACID INJ MULTI-DOSE VIAL 1,500 MG in NS 100 ML IV 100 ML IV SCH ×2 (03:30→08:44)
[2020-05-31 04:47] LABS: ABG BASE EXCESS 10.4 mmol/L (-2.0-2.0)
[2020-05-31 04:48] LABS: ABG ALLEN TEST POS; ABG HCO3 34.3 mmol/L (22-26)
[2020-05-31 05:41] LABS: BASOPHILS % (AUTO) 0.4 % (0.2-1.0); EOSINOPHILS % (AUTO) 0.1 % (0.9-2.9); HEMATOCRIT 36.2 % (42.0-54.0); HEMOGLOBIN 11.9 g/dL (13.5-18.0); LYMPHOCYTES # (AUTO) 0.5 X10^3/uL (1.3-2.9); LYMPHOCYTES % (AUTO) 3.5 % (21.0-51.0); MEAN CORPUSCULAR HEMOGLOBIN 28.7 pg (27.0-34.0); MEAN CORPUSCULAR VOLUME 86.9 fL (80.0-100.0); MEAN PLATELET VOLUME 8.7 fL (7.4-11.0); MONOCYTES # (AUTO) 0.9 x10^3/uL (0.3-0.8); MONOCYTES % (AUTO) 6.4 % (0.0-13.0); NEUTROPHILS # (AUTO) 12.1 x10^3/uL (2.2-4.8); NEUTROPHILS % (AUTO) 89.6 % (42.0-75.0); PLATELET COUNT 250 X10^3/uL (150.0-450.0); RED BLOOD COUNT 4.16 X10^6/uL (4.7-6.0); RED CELL DISTRIBUTION WIDTH 14.4 % (11.6-16.5); WHITE BLOOD COUNT 13.5 X10^3/uL (3.6-10.0)
[2020-05-31 05:51] LABS: ALANINE AMINOTRANSFERASE 33 Units/L (12-78); ALKALINE PHOSPHATASE 59 Units/L (46-116); ASPARTATE AMINO TRANSFERASE 31 Units/L (15-37); BLOOD UREA NITROGEN 21 mg/dL (7-18); CALCIUM 8.7 mg/dL (8.5-10.1); CARBON DIOXIDE 31.8 mmol/L (21-32); CHLORIDE 101 mmol/L (98-107); COR CA(FOR HYPOALB) 10.3 mg/dL (8.5-10.1); CREATININE 1.16 mg/dL (0.70-1.30); SODIUM 139 mmol/L (136-145); TOTAL PROTEIN 5.8 g/dL (6.4-8.2); eGFR NON BLACK RACES > 60 (>60)
[2020-05-31] MEDS: ZOSYN VIAL 3.375 GRAMS 3.375 G in NS 100 ML IV + SPIKE MINIBAG* 100 ML IV SCH (06:07)
[2020-05-31] MEDS: ZINC SULFATE PO SCH (08:44)
[2020-05-31] MEDS: VITAMIN D3 125 mcg (5,000 UNITS) PO SCH (08:44)
[2020-05-31] MEDS: XARELTO PO SCH (08:44)
[2020-05-31] MEDS: MAGIC MOUTHWASH MT SCH (08:45)
[2020-05-31] MEDS: VITAMIN A PO SCH (08:45)
[2020-05-31] MEDS: TRICOR TAB 160 MG PO SCH (08:45)
[2020-05-31] MEDS: PEPCID TAB 20 MG PO SCH (08:46)
[2020-05-31] MEDS ORDERED: REMDESIVIR 100 MG in NS 250 ML IV 250 ML IV SCH (09:00)
[2020-05-31] MEDS: PULMICORT NEB TX 0.5 MG NEB SCH (09:32)
[2020-05-31] MEDS: DUONEB 0.5 MG/3 MG (3 mL) NEB SCH ×2 (09:32→11:58)
--- NOTE | 2020-05-31 10:32 | RAD ---
HISTORYPNEUMONIA, COVID +STUDYCHEST, 1 VIEWCOMPARISONPortable chest May 30, 2020FINDINGSThe trachea is midline. The cardiac silhouette is unremarkable . The bilateral diffuse infiltrates are stable compared to yesterdays film. No pneumothorax or effusion is observed.. The bony thorax is unremarkable.IMPRESSIONDiffuse bilateral airspace opacities left greater than right are unchanged from yesterday's exam.Electronically signed by: KAUR JACOB (May 31, 2020 10:30:31)
[2020-05-31 10:56] LABS: ABG BASE EXCESS 9.1 mmol/L (-2.0-2.0); ABG HCO3 32.7 mmol/L (22-26)
[2020-05-31 12:05] VITALS: BP 150/66
== END 2020-05-31 12:35 | disposition home or self-care (01) | DRG 177 ==
LOC: ER 13:19 → MED/SURG 14:56 → ICU 05-25 16:03
PROVIDERS: ADMIT Obstetrics & Gynecology Obstetrics; ATTEND Obstetrics & Gynecology Obstetrics